=== PATIENT | male | born 2000 | race Caucasian/White ===

== ENCOUNTER 2022-10-25 15:42 | Emergency (ER) | payer OTHER, BC ==
[2022-10-25] MEDS ORDERED: Sodium Chloride 0.9% 1,000 ML IV ONE (17:57)
[2022-10-25] MEDS ORDERED: Ketorolac 30 MG/ML SDV IVPUSH ONE (17:58)
[2022-10-25] MEDS ORDERED: Ondansetron 4 MG/2 ML SDV IVPUSH ONE (17:58)
[2022-10-25 19:05] LABS: CARBON DIOXIDE,CO2 27.9 mmol/L (21.0-32.0)
[2022-10-25] MEDS ORDERED: Iopamidol 755 MG/ML 500 ML Multipack Bottle IVPUSH STA (19:18)
[2022-10-25 20:38] VITALS: BP 116/73; PULSE 84
== END 2022-10-25 20:37 | disposition home or self-care (01) ==
LOC: MW.ED 15:42
DX: R10.31 Right lower quadrant pain (principal); Z86.16 Personal history of COVID-19
CPT/HCPCS: 36415; 74177; 80053; 81003; 85025; 96361; 96374; 96375; 99284; J1885; J2405; J7030; Q9967

== ENCOUNTER 2023-02-06 10:28 | Day surgery (SDC) | payer OTHER, BC ==
[~2023-02-06 10:28] MED LIST: Lactated Ringers 1,000 ML IV SCH
[2023-02-06] MEDS ORDERED: Propofol 200 MG/20 ML SDV ONE ×3 (13:07→14:12)
[2023-02-06 15:57] VITALS: BP 108/66; PULSE 72
== END 2023-02-06 15:30 | disposition home or self-care (01) ==
LOC: MW.SDS 10:28
PROVIDERS: ATTEND Surgery
DX: K29.50 Unspecified chronic gastritis without bleeding (principal); K64.8 Other hemorrhoids
CPT/HCPCS: 43239; 45380; J2704; J7120; 00813